=== PATIENT | male | born 1960 | race Two or more races ===

== ENCOUNTER 2017-06-23 23:44 | Emergency (ER) | payer SELFPAY ==
[~2017-06-23] VITALS: Ht 172.7 cm; Wt 113.0 kg
[2017-06-23 23:49] VITALS: BP 135/76
== END 2017-06-24 04:15 | disposition left against medical advice (07) ==
LOC: ER 23:44
DX: M25.569 Pain in unspecified knee (principal); Z53.21 Procedure and treatment not carried out due to patient leaving prior to being seen by health care provider